=== PATIENT | female | born 1945 | race Two or more races ===

== ENCOUNTER 2018-09-08 21:58 | Inpatient (IN) | payer OTHER, MEDICARE ==
[2018-09-08] MEDS: DEXTROSE 5%-0.45% NACL 1,000 ML IV (23:30)
[2018-09-08] MEDS ORDERED: ACETAMINOPHEN 325 MG TAB PO (23:30)
[2018-09-09] MEDS ORDERED: GLUCOSE GEL 15 GRAM TUBE PO ×2 (00:30)
[2018-09-09] MEDS ORDERED: GLUCAGON 1 MG INJ IM (00:30)
[2018-09-09] MEDS ORDERED: GLUCOSE GEL 15 GRAM TUBE BUCCAL (00:30)
[2018-09-09] MEDS ORDERED: DEXTROSE 50% 50 ML SYRINGE IV ×2 (00:30)
[2018-09-09] MEDS: INSULIN ASPART [NOVOLOG] 3 ML PEN SC ×6 (01:00→20:44)
[2018-09-09] MEDS ORDERED: ACCU-CHEK XX (02:00)
[2018-09-09] MEDS: PANTOPRAZOLE (EC) 40 MG TAB PO (06:23)
[2018-09-09 07:00] LABS: ADD MAN DIFF? NO
[2018-09-09 07:18] LABS: BASOPHILS % 0.3 % (0.0-2.0); EOSINOPHILS % 0.1 % (0.0-7.0); HEMATOCRIT 40.4 % (37.0-47.0); LYMPHOCYTES # 2.8 10^3/ul (0.8-2.9); MEAN CORPUSCULAR HEMOGLOBIN 26.8 pg (29.0-33.0); MEAN CORPUSCULAR HGB CONC 32.2 g/dl (32.0-37.0); MEAN CORPUSCULAR VOLUME 83.3 fl (82.0-101.0); MONOCYTE # 0.9 10^3/ul (0.3-0.9); MONOCYTES % 7.8 % (0.0-11.0); NEUTROPHILS % 67.5 % (39.0-77.0); PLATELET COUNT 218 10^3/UL (140-415); RED BLOOD COUNT 4.85 10^6/ul (4.20-5.40); RED CELL DISTRIBUTION WIDTH 12.5 % (11.5-14.5)
[2018-09-09 07:18] LABS: WHITE BLOOD COUNT 11.8 10^3/ul (4.8-10.8)
[2018-09-09 07:42] LABS: ALANINE AMINOTRANSFERASE 23 IU/L (13-69); ALBUMIN 3.3 g/dl (3.3-4.9); ALBUMIN/GLOBULIN RATIO 1.13; ALKALINE PHOSPHATASE 69 IU/L (42-121); ANION GAP 10 (5-13); ASPARTATE AMINO TRANSFERASE 62 IU/L (15-46); BILIRUBIN,INDIRECT 0.5 mg/dl (0-1.1); BILIRUBIN,TOTAL 0.5 mg/dl (0.2-1.3); BLOOD UREA NITROGEN 32 mg/dl (7-20); CALCIUM 9.5 mg/dl (8.4-10.2); CARBON DIOXIDE 28 mmol/L (21-31); CHLORIDE 97 mmol/L (97-110); CHOLESTEROL 170 mg/dl (100-200); CREATININE 0.99 mg/dl (0.44-1.00); GLUCOSE 190 mg/dl (70-220); HDL CHOLESTEROL 42 mg/dl (33-92); LDL CHOLESTEROL,CALCULATED 105 mg/dl; POTASSIUM 4.1 mmol/L (3.5-5.1); SODIUM 135 mmol/L (135-144); TOTAL PROTEIN 6.2 g/dl (6.1-8.1); TRIGLYCERIDES 113 mg/dl (0-149)
[2018-09-09] MEDS: ATORVASTATIN 40 MG TAB PO (20:44)
[2018-09-09] MEDS: DEXTROSE 5%-0.45% NACL 1,000 ML IV (23:04)
[2018-09-10] MEDS: INSULIN ASPART [NOVOLOG] 3 ML PEN SC ×6 (01:00→20:54)
[2018-09-10] MEDS: PANTOPRAZOLE (EC) 40 MG TAB PO (05:08)
[2018-09-10 06:37] LABS: ADD MAN DIFF? NO
[2018-09-10 06:42] LABS: WHITE BLOOD COUNT 6.4 10^3/ul (4.8-10.8)
[2018-09-10 06:42] LABS: BASOPHILS % 0.5 % (0.0-2.0); EOSINOPHILS # 0.1 10^3/ul (0.0-0.5); EOSINOPHILS % 1.7 % (0.0-7.0); HEMATOCRIT 39.6 % (37.0-47.0); HEMOGLOBIN 12.8 g/dl (12.0-16.0); LYMPHOCYTES # 2.4 10^3/ul (0.8-2.9); LYMPHOCYTES % 37.8 % (15.0-51.0); MEAN CORPUSCULAR HGB CONC 32.3 g/dl (32.0-37.0); MEAN CORPUSCULAR VOLUME 83.5 fl (82.0-101.0); MEAN PLATELET VOLUME 10.5 fl (7.4-10.4); MONOCYTE # 0.7 10^3/ul (0.3-0.9); MONOCYTES % 10.9 % (0.0-11.0); NEUTROPHIL # 3.1 10^3/ul (1.6-7.5); NEUTROPHILS % 48.8 % (39.0-77.0); PLATELET COUNT 195 10^3/UL (140-415); RED BLOOD COUNT 4.74 10^6/ul (4.20-5.40); RED CELL DISTRIBUTION WIDTH 12.7 % (11.5-14.5)
[2018-09-10 07:24] LABS: ANION GAP 8 (5-13); BLOOD UREA NITROGEN 28 mg/dl (7-20); CALCIUM 8.7 mg/dl (8.4-10.2); CARBON DIOXIDE 25 mmol/L (21-31); CHLORIDE 101 mmol/L (97-110); CREATININE 0.83 mg/dl (0.44-1.00); GLUCOSE 190 mg/dl (70-220); SODIUM 134 mmol/L (135-144)
[2018-09-10 08:17] LABS: HEMOGLOBIN A1C 10.2 % (0-5.9)
[2018-09-10] MEDS: ASPIRIN (EC) 81 MG TAB PO (10:10)
[2018-09-10] MEDS ORDERED: Insulin NOVOLOG SS MILD Algorithm (SS with meals and bedtime) SC (17:25)
[2018-09-10] MEDS ORDERED: INSULIN ASPART [NOVOLOG] 3 ML PEN SC (17:25)
[2018-09-10] MEDS: ATORVASTATIN 40 MG TAB PO (20:46)
[2018-09-11] MEDS: PANTOPRAZOLE (EC) 40 MG TAB PO (05:22)
[2018-09-11 06:36] LABS: ANION GAP 7 (5-13); BLOOD UREA NITROGEN 24 mg/dl (7-20); CALCIUM 8.9 mg/dl (8.4-10.2); CARBON DIOXIDE 26 mmol/L (21-31); CHLORIDE 102 mmol/L (97-110); CREATININE 0.75 mg/dl (0.44-1.00); GLUCOSE 212 mg/dl (70-220); POTASSIUM 4.2 mmol/L (3.5-5.1); SODIUM 135 mmol/L (135-144)
[2018-09-11] MEDS: INSULIN ASPART [NOVOLOG] 3 ML PEN SC ×6 (07:54→21:00)
[2018-09-11] MEDS: ASPIRIN (EC) 81 MG TAB PO (08:13)
[2018-09-11] MEDS: ACCU-CHEK XX ×2 (17:25→21:23)
[2018-09-11] MEDS: ATORVASTATIN 40 MG TAB PO (20:55)
[2018-09-11] MEDS: INSULIN GLARGINE [LANTus] (100 UNITS/ML) SYG SC (21:20)
[2018-09-12] MEDS: ACCU-CHEK XX ×5 (02:22→21:15)
[2018-09-12] MEDS: PANTOPRAZOLE (EC) 40 MG TAB PO (05:31)
[2018-09-12] MEDS: INSULIN ASPART [NOVOLOG] 3 ML PEN SC ×7 (07:25→20:43)
[2018-09-12] MEDS ORDERED: LINAGLIPTIN 5 MG TABLET (07:56)
[2018-09-12] MEDS: ASPIRIN (EC) 81 MG TAB PO (07:59)
[2018-09-12] MEDS: LINAGLIPTIN 5 MG TABLET PO (08:00)
[2018-09-12] MEDS: ATORVASTATIN 40 MG TAB PO (20:16)
[2018-09-12] MEDS: INSULIN GLARGINE [LANTus] (100 UNITS/ML) SYG SC (21:43)
[2018-09-13] MEDS: ACCU-CHEK XX ×5 (02:04→21:11)
[2018-09-13] MEDS: PANTOPRAZOLE (EC) 40 MG TAB PO (05:32)
[2018-09-13] MEDS: INSULIN ASPART [NOVOLOG] 3 ML PEN SC ×8 (07:50→21:10)
[2018-09-13] MEDS: ASPIRIN (EC) 81 MG TAB PO (08:31)
[2018-09-13] MEDS: LINAGLIPTIN 5 MG TABLET PO (08:31)
[2018-09-13] MEDS: AMLODIPINE 5 MG TAB PO (11:00)
[2018-09-13] MEDS: ATORVASTATIN 40 MG TAB PO (20:57)
[2018-09-13] MEDS: INSULIN GLARGINE [LANTus] (100 UNITS/ML) SYG SC (21:10)
[2018-09-14] MEDS: ACCU-CHEK XX ×4 (01:39→16:58)
[2018-09-14] MEDS: PANTOPRAZOLE (EC) 40 MG TAB PO (05:36)
[2018-09-14 07:52] LABS: ADD UMIC YES; UR ASCORBIC ACID NEGATIVE (NEGATIVE); UR BILIRUBIN (Dip) NEGATIVE (NEGATIVE); UR BLOOD (Dip) 1+ mg/dL (NEGATIVE); UR CLARITY CLEAR (CLEAR); UR COLOR YELLOW (YELLOW); UR GLUCOSE (Dip) 3+ mg/dL (NEGATIVE); UR KETONES (Dip) NEGATIVE (NEGATIVE); UR LEUKOCYTE ESTERASE (Dip) NEGATIVE Leu/ul (NEGATIVE); UR NITRITE (Dip) NEGATIVE (NEGATIVE); UR RBC 0 /HPF (0-5); UR SPECIFIC GRAVITY (Dip) 1.024 (1.003-1.030); UR TOTAL PROTEIN (Dip) NEGATIVE (NEGATIVE); UR UROBILINOGEN (Dip) NEGATIVE (NEGATIVE); UR WBC 1 /HPF (0-5)
[2018-09-14] MEDS: INSULIN ASPART [NOVOLOG] 3 ML PEN SC ×6 (08:25→17:29)
[2018-09-14] MEDS: AMLODIPINE 5 MG TAB PO (09:48)
[2018-09-14] MEDS: ASPIRIN (EC) 81 MG TAB PO (09:48)
[2018-09-14] MEDS: LINAGLIPTIN 5 MG TABLET PO (09:48)
[2018-09-14] MEDS: BISACODYL (EC) 5 MG TAB PO (18:15)
== END 2018-09-14 20:46 | DRG 65 ==
LOC: TEL 21:58
PROVIDERS: Internal Medicine Nephrology
DX: I62.9 Nontraumatic intracranial hemorrhage, unspecified (principal); R65.10 Systemic inflammatory response syndrome (SIRS) of non-infectious origin without acute organ dysfunction; R55 Syncope and collapse; E11.8 Type 2 diabetes mellitus with unspecified complications; I10 Essential (primary) hypertension; I25.10 Atherosclerotic heart disease of native coronary artery without angina pectoris; Z95.1 Presence of aortocoronary bypass graft; Z90.710 Acquired absence of both cervix and uterus
CPT/HCPCS: 70450; 70551; 80048; 80053; 80061; 81001; 82607; 82962; 83036; 85025; 92507; 92523; 92526; 92610; 93306; 93880; 95819; 97116; 97162; 97530